=== PATIENT | female | born 1945 | race Caucasian/White ===

== ENCOUNTER 2022-02-01 13:32 | Inpatient (IN) | payer MEDICARE ==
[~2022-02-01] VITALS: Ht 172.7 cm; Wt 94.8 kg
[2022-02-01 14:55] LABS: BILIRUBIN NEGATIVE (NEGATIVE); BLOOD 3+ Ery/uL (NEGATIVE); COLOR YELLOW (YELLOW); GLUCOSE (U) NORMAL (NORMAL); LEUKOCYTES 2+ Leu/uL (NEGATIVE); NITRITE POSITIVE (NEGATIVE); PROTEIN NEGATIVE (NEGATIVE); UROBILINOGEN 0.2 mg/dL (0.2-1.0)
[2022-02-01 14:56] LABS: CLARITY HAZY (CLEAR)
[2022-02-01 15:04] LABS: BACTERIA 3+; URINARY RBC 20-50; URINARY WBC 20-50
[2022-02-01 15:37] LABS: ALBUMIN 3.1 g/dL (3.4-5.0); BILIRUBIN - TOTAL 0.2 mg/dL (0.2-1.0); CREATININE 1.09 mg/dL (0.51-0.95); GLOBULIN (CALCULATION) 2.4 g/dL; POTASSIUM 3.7 mmol/L (3.5-5.1); TOTAL PROTEIN 5.5 g/dL (6.4-8.2)
[2022-02-01 15:41] LABS: BASOPHIL 0.3 % (0-2); EOSINOPHIL 0.1 % (0-7); HCT 22.6 % (37.0-47.0); HGB 7.3 g/dl (12.5-16.0); INR 1.16 (0.9-1.2); LYMPHOCYTE 8.4 % (15-48); MCHC 32.3 g/dL (32.0-36.0); MCV 99.1 fL (78.0-100.0); MONOCYTE 3.9 % (0-12); MPV 11.3 fL (6.0-9.5); NEUTROPHIL 85.4 % (41-80); NRBC 0; PLT 194 K/uL (150-400); PROTHROMBIN TIME 14.2 SECONDS (11.8-13.4); PTT 29.2 SECONDS (24.4-34.7); RBC 2.28 M/uL (4.20-5.40); RDW 11.9 % (11.5-14.0); WBC 12.5 K/uL (4.0-10.5)
[2022-02-01 16:15] LABS: LACTIC ACID 1.3 mmol/L (0.4-1.9)
[2022-02-01 16:21] LABS: CKMB <0.5 ng/mL (0.0-3.6); PRO-BNP 252 pg/mL (<450)
[2022-02-01 16:48] LABS: IRON % SATURATION 63.9 %SAT (20-50)
[2022-02-01] MEDS ORDERED: ATORVASTATIN CA40 MG PO (23:26)
[2022-02-01] MEDS ORDERED: LISINOPRIL-HCT1 EAC2 PO (23:26)
[2022-02-01] MEDS ORDERED: ATIVAN0.5 MG PO (23:27)
[2022-02-01] MEDS ORDERED: CLOPIDOGREL75 MG PO (23:27)
[2022-02-02 06:22] LABS: BASOPHIL 0.3 % (0-2); EOSINOPHIL 0.1 % (0-7); HGB 7.9 g/dl (12.5-16.0); LYMPHOCYTE 14.1 % (15-48); MCH 29.8 pg (25.0-31.0); MCHC 32.9 g/dL (32.0-36.0); MONOCYTE 6.3 % (0-12); MPV 11.5 fL (6.0-9.5); NEUTROPHIL 78.4 % (41-80); NRBC 0; PLT 212 K/uL (150-400); RBC 2.65 M/uL (4.20-5.40); RDW 17.7 % (11.5-14.0); WBC 15.9 K/uL (4.0-10.5)
[2022-02-02 06:24] LABS: MCV 90.6 fL (78.0-100.0)
[2022-02-02 07:32] LABS: CREATININE 1.01 mg/dL (0.51-0.95); POTASSIUM 3.3 mmol/L (3.5-5.1)
--- NOTE | 2022-02-02 13:27 | NUR ---
PATIENT SON/POA ARRIVED AND IT SECURITY MANAGER UPDATED HIM ON PROCEDURE INFORMATION AND CAME TO ANSWER ANY QUESTIONS HE MAY HAVE. HE STATED HE HAD NO QUESTIONS AT THIS TIME. CONSENTS WERE SIGNED FOR THE PATIENT SINCE SHE IS HALLUCINATING AND STILL CONFUSED. UPDATED H&P AND MAR WAS PLACED WITH CONSENT IN THE CHART AND GIVEN TO MANAGER FUND. REPORT WAS GIVEN AND PATIENT WAS TAKEN DOWN ON 3PUMP WITH LEVO RUNNING AT 4MCG/15ML AND ZOSYN AT 25ML/HR. PATIENT HAS ALREADY HAD CEFTRIAXONE DOSE. PATIENT WAS ON RA WITH GONZALEZ AND TAKEN BY OR STAFF. AFTER PROCEDURE, REPORT WAS GIVEN BY RN. ULCER WAS FOUND, INJECTED WITH EPI, DIVERTICULOSIS AND A SMALL HIATAL HERNIA WAS PRESENT. NO ACTIVE BLEED BUT COULD BE SEEN WHERE IT WAS PREVIOUSLY. PATIENT TOLERATED WELL. PLACED ON 2LNC AND BROUGHT TO THE FLOOR WITH GRAVITY FLUIDS RUNNING. PER , RUN NS@100 FOR 500ML. PATIENT WAS HOOKED BACK UP TO MONITOR AND READJUSTED IN BED. WILL MONITOR FOR ANY CHANGES. WAITING FOR TO PLACE NEW ORDERS FOR TREATMENT.
[2022-02-02 14:26] LABS: HGB 7.2 g/dL (12.5-16.0)
[2022-02-02 14:49] LABS: CREATININE 1.01 mg/dL (0.51-0.95); POTASSIUM 3.3 mmol/L (3.5-5.1)
[2022-02-03 05:40] LABS: BASOPHIL 0.3 % (0-2); EOSINOPHIL 0.1 % (0-7); HCT 34.7 % (37.0-47.0); LYMPHOCYTE 4.2 % (15-48); MCH 32.1 pg (25.0-31.0); MCHC 32.3 g/dL (32.0-36.0); MONOCYTE 3.9 % (0-12); MPV 9.5 fL (6.0-9.5); NEUTROPHIL 89.4 % (41-80); NRBC 0; PLT 334 K/uL (150-400); RBC 3.49 M/uL (4.20-5.40); RDW 13.4 % (11.5-14.0); WBC 19.4 K/uL (4.0-10.5)
[2022-02-03 06:02] LABS: INR 1.29 (0.9-1.2); PROTHROMBIN TIME 15.4 SECONDS (11.8-13.4)
[2022-02-03 06:42] LABS: HGB 11.2 g/dl (12.5-16.0); MCV 99.4 fL (78.0-100.0)
[2022-02-03 07:12] LABS: BUN 25 mg/dL (7-18); C-REACTIVE PROTEIN >18.00 mg/dL (<=0.90); CHLORIDE 100 mmol/L (98-107); CO2 (BICARBONATE) 27 mmol/L (21-32); CREATININE 0.74 mg/dL (0.51-0.95); GLUCOSE 133 mg/dL (74-106); POTASSIUM 4.6 mmol/L (3.5-5.1)
[2022-02-03 08:11] LABS: BASOPHIL 0.3 % (0-2); EOSINOPHIL 0.1 % (0-7); HCT 19.1 % (37.0-47.0); LYMPHOCYTE 19.7 % (15-48); MCH 29.9 pg (25.0-31.0); MCHC 31.9 g/dL (32.0-36.0); MONOCYTE 6.7 % (0-12); MPV 11.4 fL (6.0-9.5); NEUTROPHIL 72.3 % (41-80); NRBC 0; PLT 161 K/uL (150-400); RBC 2.04 M/uL (4.20-5.40); RDW 17.7 % (11.5-14.0); WBC 12.5 K/uL (4.0-10.5)
[2022-02-03 08:20] LABS: HGB 6.1 g/dl (12.5-16.0); MCV 93.6 fL (78.0-100.0)
[2022-02-03 18:06] LABS: HGB 7.8 g/dL (12.5-16.0)
[2022-02-04 05:30] LABS: BASOPHIL 0.5 % (0-2); EOSINOPHIL 0.1 % (0-7); HGB 7.9 g/dl (12.5-16.0); LYMPHOCYTE 19.1 % (15-48); MCH 30.5 pg (25.0-31.0); MCHC 32.9 g/dL (32.0-36.0); MCV 92.7 fL (78.0-100.0); MONOCYTE 6.2 % (0-12); NEUTROPHIL 73.3 % (41-80); NRBC 0; PLT 140 K/uL (150-400); RBC 2.59 M/uL (4.20-5.40); RDW 17.8 % (11.5-14.0)
[2022-02-04 05:46] LABS: CREATININE 0.83 mg/dL (0.51-0.95); POTASSIUM 3.7 mmol/L (3.5-5.1)
[2022-02-04 14:39] LABS: HGB 7.5 g/dL (12.5-16.0)
--- NOTE | 2022-02-04 14:42 | NUR ---
02/04 Ms. Pennington lives at home with her spouse and son. He is independent and assist her spouse. [facility] referral was made to [facility] per her request. Please notify [facility] at [phone] if pt dcs over the weekend.
[2022-02-04 15:06] LABS: BUN/CREAT RATIO (CALC) 53.1 RATIO; CREATININE 0.81 mg/dL (0.51-0.95); POTASSIUM 3.5 mmol/L (3.5-5.1)
[2022-02-05 04:51] LABS: BASOPHIL 0.5 % (0-2); HCT 21.9 % (37.0-47.0); HGB 7.1 g/dl (12.5-16.0); LYMPHOCYTE 25.5 % (15-48); MCH 30.2 pg (25.0-31.0); MCHC 32.4 g/dL (32.0-36.0); MCV 93.2 fL (78.0-100.0); MPV 10.9 fL (6.0-9.5); NEUTROPHIL 65.3 % (41-80); NRBC 0; PLT 139 K/uL (150-400); RBC 2.35 M/uL (4.20-5.40); RDW 17.2 % (11.5-14.0); WBC 10.2 K/uL (4.0-10.5)
[2022-02-05 05:11] LABS: BUN/CREAT RATIO (CALC) 42.7 RATIO; CREATININE 0.82 mg/dL (0.51-0.95); POTASSIUM 3.5 mmol/L (3.5-5.1)
[2022-02-05 17:08] LABS: HGB 9.4 g/dL (12.5-16.0)
[2022-02-06 04:46] LABS: HCT 27.5 % (37.0-47.0); HGB 8.8 g/dl (12.5-16.0); MCH 29.3 pg (25.0-31.0); MCV 91.7 fL (78.0-100.0); MPV 11.4 fL (6.0-9.5); RDW 17.4 % (11.5-14.0); WBC 10.8 K/uL (4.0-10.5)
[2022-02-06 05:06] LABS: BUN/CREAT RATIO (CALC) 29.3 RATIO; CREATININE 0.82 mg/dL (0.51-0.95); POTASSIUM 3.1 mmol/L (3.5-5.1)
[2022-02-06] MEDS ORDERED: LISINOPRIL-HCT1 EAC2 PO (07:52)
[2022-02-06] MEDS ORDERED: ATORVASTATIN CA40 MG PO (07:52)
[2022-02-06] MEDS ORDERED: PANTOPRAZOLE SO40 MG PO (07:52)
[2022-02-06] MEDS ORDERED: NITROFURANTOIN100 M1 PO (07:52)
--- NOTE | 2022-02-06 11:00 | NUR ---
[facility] home health notified at time of discharge. [facility] compliance representative was Makayla. She was given our unit # as well as the patient's son's # to call with any questions.
== END 2022-02-06 10:45 | disposition home health service (06) | DRG 871 ==
LOC: FER 13:32 → FICU 18:00
PROVIDERS: Emergency Medicine; Student in an Organized Health Care Education/Training Program; ADMIT Family Medicine
PROC: 30233N1 Transfusion of Nonautologous Red Blood Cells into Peripheral Vein, Percutaneous Approach (ICD-10-PCS; 2022-02-01)
PROC: 3E03329 Introduction of Other Anti-infective into Peripheral Vein, Percutaneous Approach (ICD-10-PCS; 2022-02-01)
PROC: 3E033XZ Introduction of Vasopressor into Peripheral Vein, Percutaneous Approach (ICD-10-PCS; 2022-02-02)
PROC: 02HV33Z Insertion of Infusion Device into Superior Vena Cava, Percutaneous Approach (ICD-10-PCS; 2022-02-02)
PROC: 0W3P8ZZ Control Bleeding in Gastrointestinal Tract, Via Natural or Artificial Opening Endoscopic (ICD-10-PCS; principal; 2022-02-02 09:45)
PROC: 0DJD8ZZ Inspection of Lower Intestinal Tract, Via Natural or Artificial Opening Endoscopic (ICD-10-PCS; 2022-02-02 09:45)
PROC: 30233N1 Transfusion of Nonautologous Red Blood Cells into Peripheral Vein, Percutaneous Approach (ICD-10-PCS; 2022-02-03)
PROC: 30233N1 Transfusion of Nonautologous Red Blood Cells into Peripheral Vein, Percutaneous Approach (ICD-10-PCS; 2022-02-05)
DX: A41.51 Sepsis due to Escherichia coli [E. coli] (principal); R65.21 Severe sepsis with septic shock; R57.1 Hypovolemic shock; G93.41 Metabolic encephalopathy; K25.4 Chronic or unspecified gastric ulcer with hemorrhage; D62 Acute posthemorrhagic anemia; N30.01 Acute cystitis with hematuria; Z16.12 Extended spectrum beta lactamase (ESBL) resistance; Z20.822 Contact with and (suspected) exposure to COVID-19; L89.322 Pressure ulcer of left buttock, stage 2; L89.312 Pressure ulcer of right buttock, stage 2; L89.151 Pressure ulcer of sacral region, stage 1; E66.9 Obesity, unspecified; I12.9 Hypertensive chronic kidney disease with stage 1 through stage 4 chronic kidney disease, or unspecified chronic kidney disease; N18.2 Chronic kidney disease, stage 2 (mild); K57.30 Diverticulosis of large intestine without perforation or abscess without bleeding; K44.9 Diaphragmatic hernia without obstruction or gangrene; R73.9 Hyperglycemia, unspecified; E87.6 Hypokalemia; K59.01 Slow transit constipation; E86.0 Dehydration; I25.10 Atherosclerotic heart disease of native coronary artery without angina pectoris; K20.90 Esophagitis, unspecified without bleeding; E78.5 Hyperlipidemia, unspecified; R60.0 Localized edema; Z96.653 Presence of artificial knee joint, bilateral; Z86.73 Personal history of transient ischemic attack (TIA), and cerebral infarction without residual deficits; Z79.02 Long term (current) use of antithrombotics/antiplatelets; Z79.82 Long term (current) use of aspirin; Z79.899 Other long term (current) drug therapy; Z90.49 Acquired absence of other specified parts of digestive tract; Z90.710 Acquired absence of both cervix and uterus; Z82.49 Family history of ischemic heart disease and other diseases of the circulatory system; Z68.32 Body mass index [BMI] 32.0-32.9, adult
CPT/HCPCS: 36415; 36430; 71045; 80048; 80053; 81001; 82553; 82607; 82728; 82962; 83036; 83540; 83550; 83605; 83880; 84145; 84484; 85018; 85025; 85610; 85730; 86140; 86850; 86900; 86901; 86922; 87040; 87076; 87088; 87186; 92526; 93005; 93971; 97116; 97162; 97166; 97530; 97535; C9113; J0171; J0696; J2060; J2543; J2704; J3420; J3475; J3480; J7030; J7120; P9016; U0002

== ENCOUNTER → 2022-04-18 | Day surgery (SDC) | payer MEDICARE ==
[~2022-04-18] VITALS: Ht 172.7 cm; Wt 90.3 kg
[~2022-04-18] MED LIST: ATIVAN0.5 MG PO; ATORVASTATIN CA40 MG PO; CLOPIDOGREL75 MG PO; LISINOPRIL-HCT1 EAC2 PO; NITROFURANTOIN100 M1 PO; PANTOPRAZOLE SO40 MG PO
--- NOTE | 2022-04-18 10:33 | NUR ---
SPOKE WITH DR. LAST REGARDING SKIN BREAKDOWN ON PATIENT. DR. LAST VISUALIZED. ENCOURAGED PATIENT TO REDUCE SITTING TIME AND TO MONITOR THE SKIN CLOSELY.
== END | disposition home or self-care (01) ==
LOC: FAS 08:11
DX: Z12.11 Encounter for screening for malignant neoplasm of colon (principal); D12.5 Benign neoplasm of sigmoid colon; K57.30 Diverticulosis of large intestine without perforation or abscess without bleeding; K31.9 Disease of stomach and duodenum, unspecified; K27.9 Peptic ulcer, site unspecified, unspecified as acute or chronic, without hemorrhage or perforation; K44.9 Diaphragmatic hernia without obstruction or gangrene; I10 Essential (primary) hypertension; E78.5 Hyperlipidemia, unspecified; Z86.73 Personal history of transient ischemic attack (TIA), and cerebral infarction without residual deficits; Z79.899 Other long term (current) drug therapy
CPT/HCPCS: J2704; J7120

== ENCOUNTER 2022-05-20 12:41 | Inpatient (IN) | payer MEDICARE ==
[~2022-05-20] VITALS: Ht 172.7 cm; Wt 100.0 kg
[2022-05-20 14:36] LABS: BILIRUBIN NEGATIVE (NEGATIVE); BLOOD 1+ Ery/uL (NEGATIVE); CLARITY CLOUDY (CLEAR); COLOR YELLOW (YELLOW); GLUCOSE (U) NORMAL (NORMAL); LEUKOCYTES 3+ Leu/uL (NEGATIVE); NITRITE POSITIVE (NEGATIVE); PROTEIN 1+ mg/dL (NEGATIVE); UROBILINOGEN 0.2 mg/dL (0.2-1.0)
[2022-05-20 14:51] LABS: BACTERIA 4+; URINARY WBC 20-50
[2022-05-20 16:09] LABS: CORONAVIRUS 2019 SARS-COV-2 NEGATIVE (NEGATIVE); INFLUENZA A NAA NEGATIVE (NEGATIVE)
[2022-05-20 16:12] LABS: ALBUMIN 3.2 g/dL (3.4-5.0); ALKALINE PHOSHATASE 90 U/L (46-116); ALT <6 U/L (14-59); AST 10 U/L (15-37); BILIRUBIN - TOTAL 0.9 mg/dL (0.2-1.0); BUN 29 mg/dL (7-18); CO2 (BICARBONATE) 29 mmol/L (21-32); GLOBULIN (CALCULATION) 3.8 g/dL; GLUCOSE 127 mg/dL (74-106)
[2022-05-20 16:13] LABS: CHLORIDE 97 mmol/L (98-107); CREATININE 1.72 mg/dL (0.51-0.95); POTASSIUM 4.2 mmol/L (3.5-5.1)
[2022-05-20 16:42] LABS: BASOPHIL 0.3 % (0-2); EOSINOPHIL 0 % (0-7); HCT 32.5 % (37.0-47.0); HGB 10.6 g/dl (12.5-16.0); LYMPHOCYTE 3.4 % (15-48); MCH 30.7 pg (25.0-31.0); MCHC 32.6 g/dL (32.0-36.0); MCV 94.2 fL (78.0-100.0); MPV 10.9 fL (6.0-9.5); NEUTROPHIL 89.7 % (41-80); NRBC 0; PLT 269 K/uL (150-400); RBC 3.45 M/uL (4.20-5.40); RDW 13.3 % (11.5-14.0); WBC 19.8 K/uL (4.0-10.5)
[2022-05-20] MEDS ORDERED: ACETAMINOPHEN325 MG PO (19:35)
[2022-05-21 06:09] LABS: BASOPHIL 0.3 % (0-2); EOSINOPHIL 0.5 % (0-7); HCT 29.7 % (37.0-47.0); HGB 9.5 g/dl (12.5-16.0); LYMPHOCYTE 4.6 % (15-48); MCH 30.3 pg (25.0-31.0); MCV 94.6 fL (78.0-100.0); MONOCYTE 6.8 % (0-12); MPV 10.7 fL (6.0-9.5); NEUTROPHIL 87.3 % (41-80); NRBC 0; PLT 199 K/uL (150-400); RBC 3.14 M/uL (4.20-5.40); RDW 13.4 % (11.5-14.0); WBC 17.3 K/uL (4.0-10.5)
[2022-05-21 06:46] LABS: CREATININE 1.79 mg/dL (0.51-0.95); POTASSIUM 4.1 mmol/L (3.5-5.1)
--- NOTE | 2022-05-21 17:55 | NUR ---
1025 RECIEVED FROM [facility], BP AYE WAS 74/42, SHE WAS GIVEN A NS BOLUS AND STARTED ON LEVOPHED GTT AT 8MCG, INVANZ ABX. 1500 A PURWICK CATHETER WAS PLACED BECAUSE OF BP AND DECREASED MOBILITY PT STATES " I DONT WANT TO , I HAVE TO GET HOME TO MY THAT NEEDS ME BECAUSE OF HIS OWN HEALTH CONDITIONS"
[2022-05-22 06:01] LABS: BASOPHIL 0.2 % (0-2); EOSINOPHIL 0 % (0-7); HCT 30.9 % (37.0-47.0); HGB 10.2 g/dl (12.5-16.0); LYMPHOCYTE 3.1 % (15-48); MCH 30.4 pg (25.0-31.0); MONOCYTE 5.5 % (0-12); MPV 10.6 fL (6.0-9.5); NEUTROPHIL 90.4 % (41-80); NRBC 0; PLT 257 K/uL (150-400); RBC 3.36 M/uL (4.20-5.40); RDW 13.7 % (11.5-14.0)
[2022-05-22 07:17] LABS: BUN 29 mg/dL (7-18); CREATININE 1.74 mg/dL (0.51-0.95); GLUCOSE 151 mg/dL (74-106)
[2022-05-22 07:18] LABS: ALBUMIN 2.3 g/dL (3.4-5.0); ALKALINE PHOSHATASE 77 U/L (46-116); ALT <6 U/L (14-59); AST 16 U/L (15-37); BILIRUBIN - TOTAL 0.5 mg/dL (0.2-1.0); C-REACTIVE PROTEIN > 18.00 mg/dL (<=0.90); CHLORIDE 101 mmol/L (98-107); CO2 (BICARBONATE) 25 mmol/L (21-32); GLOBULIN (CALCULATION) 2.8 g/dL; MAGNESIUM 1.6 mg/dL (1.8-2.4); PHOSPHORUS 3.3 mg/dL (2.6-4.7); POTASSIUM 3.7 mmol/L (3.5-5.1); TOTAL PROTEIN 5.1 g/dL (6.4-8.2)
[2022-05-23 05:45] LABS: BASOPHIL 0.3 % (0-2); EOSINOPHIL 0.5 % (0-7); HCT 29.2 % (37.0-47.0); HGB 9.2 g/dl (12.5-16.0); LYMPHOCYTE 8.3 % (15-48); MCH 30.1 pg (25.0-31.0); MCHC 31.5 g/dL (32.0-36.0); MCV 95.4 fL (78.0-100.0); MONOCYTE 6.5 % (0-12); MPV 10.4 fL (6.0-9.5); NEUTROPHIL 83.7 % (41-80); NRBC 0; PLT 217 K/uL (150-400); RBC 3.06 M/uL (4.20-5.40); RDW 13.7 % (11.5-14.0)
[2022-05-23 07:09] LABS: ALBUMIN 2.1 g/dL (3.4-5.0); ALKALINE PHOSHATASE 70 U/L (46-116); ALT <6 U/L (14-59); AST 17 U/L (15-37); BILIRUBIN - TOTAL 0.3 mg/dL (0.2-1.0); BUN 25 mg/dL (7-18); BUN/CREAT RATIO (CALC) 16.7 RATIO; C-REACTIVE PROTEIN >18.00 mg/dL (<=0.90); CHLORIDE 103 mmol/L (98-107); CO2 (BICARBONATE) 22 mmol/L (21-32); GLOBULIN (CALCULATION) 3.4 g/dL; GLUCOSE 104 mg/dL (74-106); PHOSPHORUS 2.3 mg/dL (2.6-4.7); POTASSIUM 3.4 mmol/L (3.5-5.1); TOTAL PROTEIN 5.5 g/dL (6.4-8.2)
[2022-05-24 06:10] LABS: BASOPHIL 0.4 % (0-2); EOSINOPHIL 0.1 % (0-7); HCT 25.9 % (37.0-47.0); HGB 8.7 g/dl (12.5-16.0); LYMPHOCYTE 4.3 % (15-48); MCH 30.9 pg (25.0-31.0); MCHC 33.6 g/dL (32.0-36.0); MCV 91.8 fL (78.0-100.0); MONOCYTE 6.3 % (0-12); MPV 10.7 fL (6.0-9.5); NEUTROPHIL 87.7 % (41-80); NRBC 0; PLT 209 K/uL (150-400); RBC 2.82 M/uL (4.20-5.40); RDW 13.7 % (11.5-14.0); WBC 16.2 K/uL (4.0-10.5)
[2022-05-24 06:47] LABS: BUN 23 mg/dL (7-18); BUN/CREAT RATIO (CALC) 15.2 RATIO; C-REACTIVE PROTEIN >18.00 mg/dL (<=0.90); CHLORIDE 104 mmol/L (98-107); CO2 (BICARBONATE) 23 mmol/L (21-32); CREATININE 1.51 mg/dL (0.51-0.95); GLUCOSE 118 mg/dL (74-106); MAGNESIUM 2.1 mg/dL (1.8-2.4); PHOSPHORUS 3.4 mg/dL (2.6-4.7); POTASSIUM 4.2 mmol/L (3.5-5.1)
--- NOTE | 2022-05-25 14:39 | NUR ---
05/25/22 Ms. Pennington lives at home with her spouse, son, and son's spouse. 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 He is bedbound and Ms. Pennington provides his care. Ms. Pennington has requested to go to [facility] for therapy and completion of IV antibiotics. Insurance has denied SNF placement. - Today patient reports to have required assist of 2 for transfer by nursing, Nursing validated the report. Dr. Palacio request PT to patient again. SNU will resubmit to insurance if appropriate.
[2022-05-26] MEDS ORDERED: ASPIRIN EC81 MG PO (08:53)
--- NOTE | 2022-05-26 14:45 | NUR ---
05/26/22 Insurance denied approval for a SNU admission. A referral was made to [facility] per patient choice. Please notifiy [facility] of discharge at [phone] if patient discharges over the weekend. A referral was sent to [facility] for a lift chair. Ms. Pennington was educated re: [facility] requiring payment in full up front. They will submit to insurance, if approved, insurance will pay 80% of the motor.
[2022-05-27] MEDS ORDERED: SILVASORB44.4 ML TOP (11:40)
== END 2022-05-27 13:30 | disposition home health service (06) | DRG 871 ==
LOC: FER 12:41 → FMS 17:36 → FER 18:14 → FTCU 05-21 09:55 → FICU 05-21 09:55 → FTCU 05-23 16:11
PROVIDERS: Internal Medicine; Nurse Practitioner; ADMIT Internal Medicine
PROC: 3E03329 Introduction of Other Anti-infective into Peripheral Vein, Percutaneous Approach (ICD-10-PCS; 2022-05-20)
PROC: 3E033XZ Introduction of Vasopressor into Peripheral Vein, Percutaneous Approach (ICD-10-PCS; 2022-05-21)
PROC: B24BZZZ Ultrasonography of Heart with Aorta (ICD-10-PCS; principal; 2022-05-24)
DX: A41.51 Sepsis due to Escherichia coli [E. coli] (principal); G93.41 Metabolic encephalopathy; R65.21 Severe sepsis with septic shock; N17.9 Acute kidney failure, unspecified; Z16.12 Extended spectrum beta lactamase (ESBL) resistance; N30.00 Acute cystitis without hematuria; Z66 Do not resuscitate; Z20.822 Contact with and (suspected) exposure to COVID-19; I08.0 Rheumatic disorders of both mitral and aortic valves; L89.322 Pressure ulcer of left buttock, stage 2; L89.312 Pressure ulcer of right buttock, stage 2; I12.9 Hypertensive chronic kidney disease with stage 1 through stage 4 chronic kidney disease, or unspecified chronic kidney disease; N18.2 Chronic kidney disease, stage 2 (mild); D63.1 Anemia in chronic kidney disease; E78.5 Hyperlipidemia, unspecified; I25.10 Atherosclerotic heart disease of native coronary artery without angina pectoris; F17.210 Nicotine dependence, cigarettes, uncomplicated; Z90.49 Acquired absence of other specified parts of digestive tract; Z90.710 Acquired absence of both cervix and uterus; Z82.49 Family history of ischemic heart disease and other diseases of the circulatory system; Z83.3 Family history of diabetes mellitus; Z79.899 Other long term (current) drug therapy; Z28.311 Partially vaccinated for COVID-19; Z79.82 Long term (current) use of aspirin
CPT/HCPCS: 36415; 71045; 80048; 80053; 81001; 82607; 83605; 83735; 83880; 84100; 84145; 85025; 86140; 87040; 87076; 87088; 87186; 93005; 94010; 94760; 97110; 97162; 97166; 97530; 97530-GP; 97535; C9113; G0378; J0696; J1335; J1650; J2020; J2185; J3475; J7030; J7040; J7120; U0002